=== PATIENT | female | born 1975 | race Caucasian/White ===

== ENCOUNTER 2020-05-17 16:54 | Emergency (ER) | payer SELFPAY ==
[~2020-05-17] VITALS: Ht 152.4 cm; Wt 68.9 kg
[2020-05-17 17:06] VITALS: BP 109/66
--- NOTE | 2020-05-17 17:10 | NUR ---
Note joseone in EDM - 05/17/20 at 1712 by MEDOF 44 Y/O FEMALE FROM HOME C/O EPIGASTRIC PAIN WITH NAUSEA X 4 DAYS. PT WAS SEEN AT URGENT CARE TODAY AND REFERRED TO RULE OUT STOMACH ULCER. ABD SOFT, AND TENDER TO PALP. DENIES SOB. AWAKE AND ALERT, RR EVEN AND UNLABORED. VSS MEDHX: DENIES
--- NOTE | 2020-05-17 17:13 | NUR ---
44 Y/O FEMALE FROM HOME C/O EPIGASTRIC PAIN WITH NAUSEA X 4 DAYS. PT WAS SEEN AT URGENT CARE TODAY AND REFERRED TO RULE OUT STOMACH ULCER. ABD SOFT, AND TENDER TO PALP. DENIES SOB. AWAKE AND ALERT, RR EVEN AND UNLABORED. VSS MEDHX: DENIES
--- NOTE | 2020-05-17 17:27 | NUR ---
Dr Bruner at bedside examining pt
--- NOTE | 2020-05-17 17:33 | NUR ---
Pt ambulated to restroom for collection of urine
--- NOTE | 2020-05-17 17:38 | NUR ---
Ultrasound at bedside
--- NOTE | 2020-05-17 18:05 | NUR ---
Lab at bedside
[2020-05-17 18:11] LABS: BASOPHILS % (AUTO) 0.3 % (0.0-2.0); HEMATOCRIT 39.7 % (36-48); HEMOGLOBIN 13.5 g/dL (12.0-16.0); LYMPHOCYTES % (AUTO) 22.7 % (20.5-51.1); MEAN CORPUSCULAR HEMOGLOBIN 31 pg (27-31); MEAN CORPUSCULAR HGB CONC 34 g/dL (33-37); MEAN CORPUSCULAR VOLUME 89.5 fL (80-94); MONOCYTES # (AUTO) 0.4 K/uL (0.8-1.0); MONOCYTES % (AUTO) 8.5 % (1.7-9.3); NEUTROPHILS % (AUTO) 68.5 % (42.2-75.2); PLATELET COUNT (AUTO) 236 K/uL (140-450); RED BLOOD CELL COUNT(AUTO) 4.44 MIL/uL (4.20-5.40); RED CELL DISTRIBUTION WIDTH 13.3 % (11.6-13.7); WHITE BLOOD COUNT (AUTO) 4.3 K/uL (4.8-10.8)
--- NOTE | 2020-05-17 18:18 | NUR ---
PT TAKEN TO X-RAY
[2020-05-17 18:22] LABS: ANION GAP 13.2 (8-16); CARBON DIOXIDE 28.4 mmol/L (21-32); CREATININE 1.1 mg/dL (0.6-1.3); POTASSIUM 3.6 mmol/L (3.5-5.1)
[2020-05-17 18:27] LABS: ALBUMIN 3.8 g/dL (3.4-5.0); TOTAL BILIRUBIN 0.8 mg/dL (0.0-1.0)
--- NOTE | 2020-05-17 18:46 | NUR ---
Pt awake and alert, rr even and unlabored. No complaints at this time. Will continue to monitor
[2020-05-17 19:06] VITALS: BP 104/63
--- NOTE | 2020-05-17 19:07 | NUR ---
Patient discharged with v/s stable. Written and verbal after care instructions given and explained. Patient alert, oriented and verbalized understanding of instructions. Ambulatory with to car. All questions addressed prior to discharge. ID band removed. Patient advised to follow up with PMD. Rx of MIRALAX, IBUPROFEN, ZOFRAN given. Patient educated on indication of medication including possible reaction and side effects. Opportunity to ask questions provided and answered.
== END 2020-05-17 19:07 | disposition home or self-care (01) ==
LOC: MED 16:54
DX: R10.13 Epigastric pain (principal)
CPT/HCPCS: 36415; 74021; 76705; 80053; 81025; 83690; 85025; 99285; Q0092